=== PATIENT | male | born 1945 | race Caucasian/White ===

== ENCOUNTER 2023-11-11 18:49 | Observation (INO) | payer MEDICARE, OTHER ==
[~2023-11-11] VITALS: Ht 175.3 cm; Wt 85.3 kg
[2023-11-11 19:41] LABS: BASO % 0.4 % (0.0-2.0); EOS % 0.2 % (0.0-4.0); GRAN # 7.9 K/mm3 (1.4-6.5); HEMATOCRIT 43.5 % (42.0-52.0); HEMOGLOBIN 15.1 g/dl (13.5-18.0); LYMPH # 1.7 K/mm3 (1.2-3.4); LYMPH % 16.4 % (20.0-51.0); MEAN CELL VOLUME 95 fl (80.0-100.0); MEAN CORPUSCULAR HEMOGLOBIN 33 pg (27-31); MEAN CORPUSCULAR HGB CONC 35 g/dl (33.0-37.0); MEAN PLATELET VOLUME 10.3 fl (7.4-10.4); MONO # 0.8 K/mm3 (0.1-0.6); MONO % 7.4 % (1.7-9.3); PLATELET COUNT 195 K/mm3 (130-400); RED BLOOD COUNT 4.59 M/mm3 (4.20-5.60)
[2023-11-11 19:58] LABS: ALBUMIN 4.1 gm/dL (3.4-4.8); CALCIUM 9.3 mg/dL (8.4-10.2); CREATININE, serum 0.88 mg/dL (0.72-1.25); POTASSIUM 4.1 mmol/L (3.5-4.5)
[2023-11-11 20:17] LABS: BILIRUBIN,TOTAL 0.9 mg/dL (0.2-1.2)
[2023-11-11 23:28] VITALS: BP 162/89; PULSE 76; TEMP 98
--- NOTE | 2023-11-11 23:28 | NUR ---
PATIENT ADMITTED TO ROOM 316 FROM ED. VS ARE FOLLOWS: 162/89 BP, 94 O2 ON RA, 16 RR, PULSE 76 AND 98 TEMP. PATIENT DENIES CHEST PAIN AND SOA. STATES NO NEEDS. CALL LIGHT WITHIN REACH
[2023-11-12] VITALS (8 sets, daily range): BP systolic 145–148; BP diastolic 75–81; PULSE 73–74; TEMP 98–98.1
--- NOTE | 2023-11-12 05:38 | NUR ---
CALL FROM HILARY, PATIENT'S BROTHER RECIEVED. HILARY WISHED TO SPEAK TO HAL AND DID NOT ASK THIS NURSE FOR UPDATE.
--- NOTE | 2023-11-12 05:40 | NUR ---
END OF SHIFT AND HAL IS ANXIOUSLY AWAITING NEWS OF DISCHARGE. PATIENT EDUCATION PROVIDED ON POSSIBLY OF GOING HOME WITH O2 THERAPY. VS WNL, TELE NS.
--- NOTE | 2023-11-12 09:30 | NUR ---
Patient resting in bed, alert and oriented, breakfast just arrived. Denies any pain or discomfort at this time. Just comming back for a walk with PT, O2 sats without O2 drop to high 70's. Right now on 2L NC sat back to 92. Meds given, no further needs at this time. Call light within reach.
--- NOTE | 2023-11-12 10:22 | NUR ---
Initial visit; Patient thanked Guide Alpine for stopping though declined Spiritual Care. Guide Alpine wished "Pierce" well.
[2023-11-12] MEDS ORDERED: PROAIR HFA0.09 MG/AC IH (12:25)
--- NOTE | 2023-11-12 15:57 | NUR ---
chamber worker met with pt to complete discharge planning. Pt reports he lives alone in [place] in [facility]. He does not have a PCP and reports he used to see Dr. Guajardo, but has not gone to the Doctor in years. Pt confirmed his NOK is his brother, Manuel [phone] and a [id number], Sandra [phone] whom live in [place], [place]. Pt reports he obtains medications from [facility] with no difficulties. He does not have a DPOA-HC and declined one at this time stating, "It's just my brother." Pt reports he is independent with ADLS and uses no DME at home. Pt is on 2L oxyegn and is reccomended for a FWW. SW went over the OT reccomendation for Home with HH. Pt had many questions and wanted SW to speak with Sandra. Pt called Sandra on the phone and SW went over the reccomendation for HH PT/PT/SN due to wekaness or mobility concerns. Sandra reports "[facility], so that is alarming.." SW advised that it is reccomended to safely go home. SW advised she also would be requesting the FWW and oxygen. Pt states he drove himself to the hospital and his car is parked here. Sandra would like to deliberate with Manuel and call JASMYN back. SW recieved a call from Sandra and Manuel stating they cannot care for pt and they cannot have him in their home due to they are in their 80s. They report their PCPs are not accepting new pt's either when SW advised pt is not established here. The family went on to reiterate they cannot take care of him and wondered about SNF, IPR, or other nursing homes. JASMYN provided information on all the options. SW provided pt does not meet Medicare Critera for SNF by insurance, but he could private pay. They report this is not an option for pt. SW advised they could have a discussion as a family unit for Assisted Living, LTC, Independent Living in a community. Manuel reports, "I am not doing that. That is on him. I can barely handle my own stuff." Manuel verbalized resistance and was not willing to provide assistance with other options for pt. JASMYN met with pt again and provided him with the Medicare.gov list of HH areas. SW provided that staying with his family is not an option. SW provided he does not meet critera for SNF/LTC. Pt appeared somewhat confused during this and stated that he has another life insurance at home he pays into. SW provided we only have the two insurances' on file and he reports the [employer] is the [employer]. SW read off the HH options and was informed he has a decision in the matter. Pt chose [facility] off the list. SW stated she will fax the referral. SW provided his FWW and oxygen will be brought to his room. Pt states he will drive home today. JASMYN spoke with Dr. Marte who reports he is not on any pain medication and could do so. SW faxed a FWW and oxygen order to [facility]. They report they will bring in at 5pm due to transport being busy. JASMYN informed RN and Aide. JASMYN faxed a HH referral to [facility]. JASMYN spoke with Tita on the phone who reports they are short staffed for PT/OT, but has to confirm with them. JASMYN later call back and spoke with Grace who reports they can accept pt at the very least for Shelter. She states they are waiting to see if their contracted PT has availability. SW provided it would be necessary to have someone in his home. The [facility] informed SW that they will accept and later speak with his PCP if they need to utilize a different agency for PT/OT. JASMYN spoke with pt about a PCP. He was agreeable to see anyone and any gender. JASMYN informed [facility] [employer] Liz. Pt will see Dr. Rivera in December, but PA Summer in a week. Discharge Plan: Home with [facility]
--- NOTE | 2023-11-12 17:00 | NUR ---
Patient was provided with discharge information, all questions answered. IV access and telemetry were discontinued. Pt awaiting for O2 and walker to go home.
--- NOTE | 2023-11-12 17:41 | NUR ---
Pt receivded O2 and walker. Accompanied by HAZEL Sheriff to the Emergency entrance.
== END 2023-11-12 17:44 | disposition home health service (06) ==
LOC: COL.ER 18:49 → MEDICAL 22:20
PROVIDERS: Emergency Medicine; ADMIT Internal Medicine
DX: S22.089A Unspecified fracture of T11-T12 vertebra, initial encounter for closed fracture (principal); R09.02 Hypoxemia; W00.0XXA Fall on same level due to ice and snow, initial encounter; Y93.9 Activity, unspecified; Y92.481 Parking lot as the place of occurrence of the external cause; Z86.16 Personal history of COVID-19
CPT/HCPCS: G0378; J1650; J1885; J7030; J8540; Q9967